=== PATIENT | male | born 1950 | race Caucasian/White ===

== ENCOUNTER 2017-10-27 19:36 | Inpatient (IN) | payer OTHER ==
[~2017-10-27] VITALS: Ht 172.7 cm; Wt 96.2 kg
[~2017-10-27 19:36] MED LIST: AMOX TR-K CLV1 EAC4 PO; DOCUSATE SODIU100 MG PO; LORTAB 5-325 M1 EACH PO
[2017-10-27 20:03] LABS: BASOPHIL (%) 0.5 % (0-1); BASOPHIL COUNT 0.1 K/uL (0-0.1); EOSINOPHIL (%) 0 % (0-5); HEMOGLOBIN 14.2 G/DL (12.5-16.6); IMMATURE GRANULOCYTE (%) 0.6 % (0.0-0.7); LYMPHOCYTE (%) 12.1 % (15-42); MCHC 34.6 G/DL (30.0-36.0); MCV 86.7 FL (86-99); MONOCYTE (%) 9.2 % (3-12); MONOCYTE COUNT 1.5 K/uL (0-0.8); NEUTROPHIL (%) 77.6 % (45-76); NEUTROPHIL COUNT 12.5 K/uL (1.8-6.4); PLATELET COUNT 146 K/uL (156-360); RBC DIS.WIDTH-CV 14.9 % (11.8-14.6); RBC DIS.WIDTH-SD 46.6 % (39-53); RED BLOOD COUNT 4.73 M/uL (4.00-5.50); WHITE BLOOD COUNT 16.1 K/uL (4.1-10.2)
[2017-10-27] MEDS ORDERED: ZESTRIL5 MG PO (20:07)
[2017-10-27 20:11] LABS: INTER. NORMALIZED RATIO 1.7
[2017-10-27 20:12] LABS: AMYLASE 45 IU/L (1-118); CHLORIDE 106 mEq/L (99-109); POTASSIUM 4.3 mEq/L (3.7-5.4); SODIUM 135 mEq/L (136-147)
[2017-10-27 20:13] LABS: GLUCOSE 111 mg/dL (70-99); PTT 34.1 SEC (25-37)
[2017-10-27 20:17] LABS: GFR ESTIMATE (CALCULATED) > 59 mL/min/ (58.99-99999); SERUM ETHYL ALCOHOL < 10 mg/dL
[2017-10-27 20:18] LABS: UREA NITROGEN (BUN) 16 mg/dL (9-23)
[2017-10-27 20:20] LABS: LIPASE 12 U/L (1.0-51.0)
[2017-10-27 20:22] LABS: TROP-I INTERPRETATION NEGATIVE; TROPONIN-I 0.16 ng/mL (0.0-0.30)
[2017-10-27] MEDS ORDERED: DAILY VALUE1 EACH PO (21:45)
[2017-10-27 22:36] LABS: APPEARANCE SL.HAZY ((CLEAR)); BILIRUBIN NEGATIVE; BLOOD LARGE; COLOR AMBER ((YELLOW)); GLUCOSE (STRIP) NEGATIVE; KETONES NEGATIVE; LEUKOCYTES NEGATIVE; NITRITE NEGATIVE; PROTEIN (STRIP) 100; SPECIFIC GRAVITY 1.023 (1.000-1.030)
[2017-10-27 23:13] LABS: AMPHETAMINE NEGATIVE (500 ng/mL); BACTERIA 1+ /HPF; BARBITURATES NEGATIVE (200 ng/mL); BENZODIAZEPINES NEGATIVE (150 ng/mL); BUPRENORPHINE NEGATIVE (10 ng/mL); COCAINE NEGATIVE (150 ng/mL); EPITHELIAL CELLS NONE SEEN /HPF; METHADONE NEGATIVE (200 ng/mL); METHAMPHETAMINE NEGATIVE (500 ng/mL); MUCUS TRACE /LPF; OPIATES (MORPHINE) NEGATIVE (100 ng/mL); OXYCODONE NEGATIVE (100 ng/mL); PHENCYCLIDINE NEGATIVE (25 ng/mL); PROPOXYPHENE NEGATIVE (300 ng/mL); RED BLOOD CELLS 40-50 /HPF (0-5); THC CANNABINOIDS NEGATIVE (50 ng/mL); TRICYCLIC ANTIDEPRESSANTS NEGATIVE (300 ng/mL); UCUL ADDED? YES
[2017-10-28 01:36] LABS: TROP-I INTERPRETATION NEGATIVE; TROPONIN-I 0.17 ng/mL (0.0-0.30)
[2017-10-28 02:00] VITALS: BP 152/88
[2017-10-28 05:03] VITALS: BP 123/96
[2017-10-28 06:11] LABS: TROP-I INTERPRETATION NEGATIVE; TROPONIN-I 0.15 ng/mL (0.0-0.30)
[2017-10-28 07:07] VITALS: BP 133/92
[2017-10-28 12:10] VITALS: BP 111/82
[2017-10-28 16:57] VITALS: BP 117/78
[2017-10-28 20:15] VITALS: BP 144/96
[2017-10-29 00:20] VITALS: BP 132/80
[2017-10-29 03:32] VITALS: BP 130/82
[2017-10-29 05:32] LABS: HEMATOCRIT 41.5 % (38.0-50.0); HEMOGLOBIN 13.8 G/DL (12.5-16.6); MCH 28.7 PG (29.0-34.0); MCHC 33.3 G/DL (30.0-36.0); MCV 86.3 FL (86-99); PLATELET COUNT 150 K/uL (156-360); RBC DIS.WIDTH-CV 15.1 % (11.8-14.6); RBC DIS.WIDTH-SD 47.6 % (39-53); RED BLOOD COUNT 4.81 M/uL (4.00-5.50)
[2017-10-29 05:49] LABS: CHLORIDE 104 MEQ/L (99-109); CREATININE 0.9 MG/DL (0.6-1.3); GFR ESTIMATE (CALCULATED) > 59 mL/min/ (58.99-99999); GLUCOSE 100 mg/dL (70-99); POTASSIUM 3.8 MEQ/L (3.7-5.4); SODIUM 135 MEQ/L (136-147); UREA NITROGEN (BUN) 19 mg/dL (9-23)
[2017-10-29 07:21] VITALS: BP 113/82
[2017-10-29 11:19] VITALS: BP 98/70
[2017-10-29 13:03] LABS: INTER. NORMALIZED RATIO 1.5
[2017-10-29 13:08] LABS: PTT 100.4 SEC (25-37)
[2017-10-29 16:12] VITALS: BP 114/79
[2017-10-29 19:35] LABS: INTER. NORMALIZED RATIO 1.5
[2017-10-29 19:49] LABS: PTT 73.4 SEC (25-37)
[2017-10-29 20:32] VITALS: BP 113/68
[2017-10-30 00:08] VITALS: BP 118/62
[2017-10-30 02:39] LABS: BASOPHIL (%) 0.5 % (0-1); BASOPHIL COUNT 0.1 K/uL (0-0.1); EOSINOPHIL (%) 1.4 % (0-5); EOSINOPHIL COUNT 0.1 K/uL (0-0.3); HEMATOCRIT 42.8 % (38.0-50.0); HEMOGLOBIN 14.6 G/DL (12.5-16.6); IMMATURE GRANULOCYTE (%) 0.3 % (0.0-0.7); LYMPHOCYTE (%) 22.8 % (15-42); LYMPHOCYTE COUNT 2.3 K/uL (1.0-2.8); MCH 29.8 PG (29.0-34.0); MCHC 34.1 G/DL (30.0-36.0); MCV 87.3 FL (86-99); MONOCYTE (%) 9.2 % (3-12); MONOCYTE COUNT 0.9 K/uL (0-0.8); NEUTROPHIL (%) 65.8 % (45-76); NEUTROPHIL COUNT 6.6 K/uL (1.8-6.4); PLATELET COUNT 150 K/uL (156-360); RBC DIS.WIDTH-CV 15.2 % (11.8-14.6); RBC DIS.WIDTH-SD 48.4 % (39-53)
[2017-10-30 02:45] LABS: INTER. NORMALIZED RATIO 1.4
[2017-10-30 02:59] LABS: CHLORIDE 104 mEq/L (99-109); POTASSIUM 4.4 mEq/L (3.7-5.4); SODIUM 138 mEq/L (136-147)
[2017-10-30 03:01] LABS: GLUCOSE 89 mg/dL (70-99)
[2017-10-30 03:05] LABS: CREATININE 0.9 mg/dL (0.6-1.3); GFR ESTIMATE (CALCULATED) > 59 mL/min/ (58.99-99999)
[2017-10-30 03:06] LABS: UREA NITROGEN (BUN) 21 mg/dL (9-23)
[2017-10-30 03:22] VITALS: BP 118/78
[2017-10-30 08:14] VITALS: BP 107/75
[2017-10-30 12:07] VITALS: BP 108/73
[2017-10-30 16:05] VITALS: BP 110/80
[2017-10-30 20:46] VITALS: BP 122/87
[2017-10-31] VITALS (8 sets, daily range): BP systolic 107–140; BP diastolic 70–90
[2017-10-31 06:40] LABS: INTER. NORMALIZED RATIO 1.4
[2017-10-31 06:55] LABS: CHLORIDE 102 MEQ/L (99-109); CREATININE 1.1 MG/DL (0.6-1.3); GFR ESTIMATE (CALCULATED) > 59 mL/min/ (58.99-99999); GLUCOSE 101 mg/dL (70-99); SODIUM 132 MEQ/L (136-147); UREA NITROGEN (BUN) 27 mg/dL (9-23)
[2017-11-01 03:36] VITALS: BP 117/75
[2017-11-01 06:41] LABS: BASOPHIL (%) 0.6 % (0-1); BASOPHIL COUNT 0.1 K/uL (0-0.1); EOSINOPHIL (%) 0.6 % (0-5); EOSINOPHIL COUNT 0.1 K/uL (0-0.3); HEMATOCRIT 41.6 % (38.0-50.0); HEMOGLOBIN 14.1 G/DL (12.5-16.6); IMMATURE GRANULOCYTE (%) 0.4 % (0.0-0.7); LYMPHOCYTE (%) 20.5 % (15-42); LYMPHOCYTE COUNT 1.6 K/uL (1.0-2.8); MCH 29.4 PG (29.0-34.0); MCHC 33.9 G/DL (30.0-36.0); MCV 86.8 FL (86-99); MONOCYTE (%) 8.8 % (3-12); MONOCYTE COUNT 0.7 K/uL (0-0.8); NEUTROPHIL (%) 69.1 % (45-76); NEUTROPHIL COUNT 5.4 K/uL (1.8-6.4); NRBC (%) 0.4 /100 WBC (0-0); PLATELET COUNT 169 K/uL (156-360); RBC DIS.WIDTH-CV 15.5 % (11.8-14.6); RED BLOOD COUNT 4.79 M/uL (4.00-5.50); WHITE BLOOD COUNT 7.9 K/uL (4.1-10.2)
[2017-11-01 06:52] LABS: INTER. NORMALIZED RATIO 1.7
[2017-11-01 06:55] LABS: PTT 91.1 SEC (25-37)
[2017-11-01 07:08] LABS: CHLORIDE 105 MEQ/L (99-109); CREATININE 1.1 MG/DL (0.6-1.3); GFR ESTIMATE (CALCULATED) > 59 mL/min/ (58.99-99999); GLUCOSE 93 mg/dL (70-99); POTASSIUM 4.6 MEQ/L (3.7-5.4); SODIUM 137 MEQ/L (136-147); UREA NITROGEN (BUN) 30 mg/dL (9-23)
[2017-11-01 07:10] VITALS: BP 116/72
[2017-11-01 11:02] VITALS: BP 111/67
[2017-11-01 14:36] LABS: INTER. NORMALIZED RATIO 1.7
[2017-11-01 14:40] LABS: PTT 36.3 SEC (25-37)
[2017-11-01 16:08] VITALS: BP 132/77
[2017-11-01 19:29] VITALS: BP 114/78
[2017-11-02] VITALS (8 sets, daily range): BP systolic 101–136; BP diastolic 56–85
[2017-11-02 02:52] LABS: INTER. NORMALIZED RATIO 2.4
[2017-11-02 02:57] LABS: CHLORIDE 105 mEq/L (99-109); POTASSIUM 4.5 mEq/L (3.7-5.4); SODIUM 138 mEq/L (136-147)
[2017-11-02 02:59] LABS: GLUCOSE 102 mg/dL (70-99)
[2017-11-02 03:03] LABS: GFR ESTIMATE (CALCULATED) > 59 mL/min/ (58.99-99999)
[2017-11-02 03:04] LABS: UREA NITROGEN (BUN) 30 mg/dL (9-23)
[2017-11-03 00:07] VITALS: BP 100/70
[2017-11-03 03:54] VITALS: BP 119/84
[2017-11-03 06:22] LABS: BASOPHIL (%) 0.7 % (0-1); BASOPHIL COUNT 0.1 K/uL (0-0.1); EOSINOPHIL (%) 2.7 % (0-5); EOSINOPHIL COUNT 0.2 K/uL (0-0.3); HEMATOCRIT 43.8 % (38.0-50.0); HEMOGLOBIN 14.1 G/DL (12.5-16.6); IMMATURE GRANULOCYTE (%) 0.3 % (0.0-0.7); LYMPHOCYTE (%) 16.5 % (15-42); LYMPHOCYTE COUNT 1.2 K/uL (1.0-2.8); MCH 28.3 PG (29.0-34.0); MCHC 32.2 G/DL (30.0-36.0); MCV 87.8 FL (86-99); MONOCYTE (%) 8.6 % (3-12); MONOCYTE COUNT 0.6 K/uL (0-0.8); NEUTROPHIL (%) 71.2 % (45-76); NEUTROPHIL COUNT 5.3 K/uL (1.8-6.4); PLATELET COUNT 179 K/uL (156-360); RBC DIS.WIDTH-CV 15.7 % (11.8-14.6); RBC DIS.WIDTH-SD 50.1 % (39-53); RED BLOOD COUNT 4.99 M/uL (4.00-5.50); WHITE BLOOD COUNT 7.5 K/uL (4.1-10.2)
[2017-11-03 06:27] LABS: INTER. NORMALIZED RATIO 3.6
[2017-11-03 06:44] LABS: CHLORIDE 103 MEQ/L (99-109); GFR ESTIMATE (CALCULATED) > 59 mL/min/ (58.99-99999); GLUCOSE 87 mg/dL (70-99); POTASSIUM 4.1 MEQ/L (3.7-5.4); SODIUM 137 MEQ/L (136-147); UREA NITROGEN (BUN) 26 mg/dL (9-23)
[2017-11-03 07:16] VITALS: BP 117/84
[2017-11-03 11:22] VITALS: BP 112/77
[2017-11-03 15:25] VITALS: BP 112/81
[2017-11-03] MEDS ORDERED: AMOX TR-K CLV1 EAC4 PO (15:37)
[2017-11-03] MEDS ORDERED: ASPIR-LOW81 MG PO (15:39)
[2017-11-03] MEDS ORDERED: FUROSEMIDE40 MG PO (15:39)
[2017-11-03] MEDS ORDERED: LISINOPRIL2.5 MG PO (15:40)
[2017-11-03] MEDS ORDERED: SPIRONOLACTONE25 MG PO (15:40)
[2017-11-03] MEDS ORDERED: COUMADIN1 MG PO (15:41)
[2017-11-03] MEDS ORDERED: LOPRESSOR25 MG PO (15:42)
[2017-11-03] MEDS ORDERED: ATORVASTATIN CA40 MG PO (15:42)
== END 2017-11-03 19:02 | disposition home health service (06) | DRG 871 ==
LOC: EME → EDBD 19:36 → EME 19:36 → EDOF 10-28 00:07 → 4EAST 10-28 00:07 → 5SOUTH 10-28 00:07 → ENRESERV 10-28 00:10 → 4EAST 10-28 01:58 → ENRESERV 10-31 14:56 → 5SOUTH 10-31 17:29 → ENPENDDIS 11-03 15:54 → 5SOUTH 11-03 19:02
PROVIDERS: Emergency Medicine; Hospitalist; Internal Medicine Cardiovascular Disease; Physician Assistant
DX: A41.9 Sepsis, unspecified organism (principal); N39.0 Urinary tract infection, site not specified; I26.99 Other pulmonary embolism without acute cor pulmonale; J15.9 Unspecified bacterial pneumonia; R74.8 Abnormal levels of other serum enzymes; I50.21 Acute systolic (congestive) heart failure; I47.2 Ventricular tachycardia; J98.11 Atelectasis; I11.0 Hypertensive heart disease with heart failure; I70.0 Atherosclerosis of aorta; B95.4 Other streptococcus as the cause of diseases classified elsewhere; I27.20 Pulmonary hypertension, unspecified; Z68.32 Body mass index [BMI] 32.0-32.9, adult; E66.3 Overweight; I42.9 Cardiomyopathy, unspecified; Z79.01 Long term (current) use of anticoagulants; Z90.49 Acquired absence of other specified parts of digestive tract; Z87.891 Personal history of nicotine dependence; Z79.899 Other long term (current) drug therapy; Z86.711 Personal history of pulmonary embolism; Z82.49 Family history of ischemic heart disease and other diseases of the circulatory system
CPT/HCPCS: 71045; 71275; 80048; 81003; 82150; 83605; 83690; 83880; 84484; 85025; 85027; 85610; 85730; 86850; 86900; 86901; 87040; 87086; 87186; 87801; 93005; 93306; 99281; 99285; G0480; J0456; J0696; J1940

== ENCOUNTER 2018-01-20 09:53 | Inpatient (IN) | payer OTHER ==
[~2018-01-20] VITALS: Ht 167.6 cm; Wt 85.5 kg
[~2018-01-20 09:53] MED LIST changes: +ASPIR-LOW81 MG PO; +ATORVASTATIN CA40 MG PO; +COUMADIN1 MG PO; +DAILY VALUE1 EACH PO; +FUROSEMIDE40 MG PO; +LISINOPRIL2.5 MG PO; +LOPRESSOR25 MG PO; +SPIRONOLACTONE25 MG PO; +ZESTRIL5 MG PO
[2018-01-20 10:25] LABS: BASOPHIL (%) 0.9 % (0-1); BASOPHIL COUNT 0.1 K/uL (0-0.1); EOSINOPHIL (%) 5.6 % (0-5); EOSINOPHIL COUNT 0.4 K/uL (0-0.3); HEMATOCRIT 36.3 % (38.0-50.0); HEMOGLOBIN 12.8 G/DL (12.5-16.6); IMMATURE GRANULOCYTE (%) 0.4 % (0.0-0.7); LYMPHOCYTE (%) 21.8 % (15-42); LYMPHOCYTE COUNT 1.7 K/uL (1.0-2.8); MCH 29.2 PG (29.0-34.0); MCHC 35.3 G/DL (30.0-36.0); MCV 82.9 FL (86-99); MONOCYTE (%) 5.4 % (3-12); MONOCYTE COUNT 0.4 K/uL (0-0.8); NEUTROPHIL (%) 65.9 % (45-76); NEUTROPHIL COUNT 5.2 K/uL (1.8-6.4); PLATELET COUNT 180 K/uL (156-360); RBC DIS.WIDTH-CV 19.1 % (11.8-14.6); RBC DIS.WIDTH-SD 57.5 % (39-53); RED BLOOD COUNT 4.38 M/uL (4.00-5.50); WHITE BLOOD COUNT 7.8 K/uL (4.1-10.2)
[2018-01-20 10:31] LABS: INTER. NORMALIZED RATIO 2.1
[2018-01-20 10:33] LABS: PTT 39.3 SEC (25-37)
[2018-01-20 10:34] LABS: CHLORIDE 99 mEq/L (99-109); POTASSIUM 5.3 mEq/L (3.7-5.4); SODIUM 134 mEq/L (136-147)
[2018-01-20 10:36] LABS: GLUCOSE 171 mg/dL (70-99)
[2018-01-20 10:40] LABS: CREATININE 2.5 mg/dL (0.6-1.3); GFR ESTIMATE (CALCULATED) 28 mL/min/ (58.99-99999)
[2018-01-20 10:41] LABS: UREA NITROGEN (BUN) 46 mg/dL (9-23)
[2018-01-20 10:46] LABS: TROP-I INTERPRETATION INDETERMINATE; TROPONIN-I 0.32 ng/mL (0.0-0.30)
[2018-01-20] MEDS ORDERED: LO-DOSE ASPIRIN81 M2 PO (11:46)
[2018-01-20] MEDS ORDERED: LASIX40 MG PO ×2 (11:46→11:47)
[2018-01-20] MEDS ORDERED: ZESTRIL2.5 MG PO (11:48)
[2018-01-20] MEDS ORDERED: ALDACTONE25 MG PO (11:48)
[2018-01-20 14:10] VITALS: BP 118/71
[2018-01-20 15:34] LABS: TROP-I INTERPRETATION POSITIVE; TROPONIN-I 2.56 ng/mL (0.0-0.30)
[2018-01-20 19:54] VITALS: BP 118/68
[2018-01-20 21:29] LABS: TROP-I INTERPRETATION POSITIVE
[2018-01-20 21:30] LABS: TROPONIN-I 3.63 ng/mL (0.0-0.30)
[2018-01-21 00:41] VITALS: BP 101/59
[2018-01-21 04:18] VITALS: BP 100/54
[2018-01-21 07:25] LABS: HEMATOCRIT 38.3 % (38.0-50.0); HEMOGLOBIN 12.8 G/DL (12.5-16.6); MCH 28.4 PG (29.0-34.0); MCHC 33.4 G/DL (30.0-36.0); MCV 84.9 FL (86-99); PLATELET COUNT 191 K/uL (156-360); RBC DIS.WIDTH-SD 61.1 % (39-53); RED BLOOD COUNT 4.51 M/uL (4.00-5.50); WHITE BLOOD COUNT 9.1 K/uL (4.1-10.2)
[2018-01-21 07:47] LABS: TROP-I INTERPRETATION POSITIVE; TROPONIN-I 3.86 ng/mL (0.0-0.30)
[2018-01-21 07:51] LABS: CHLORIDE 101 MEQ/L (99-109); CREATININE 2.4 MG/DL (0.6-1.3); GFR ESTIMATE (CALCULATED) 29 mL/min/ (58.99-99999); POTASSIUM 5.1 MEQ/L (3.7-5.4); SODIUM 136 MEQ/L (136-147); UREA NITROGEN (BUN) 45 mg/dL (9-23)
[2018-01-21 08:04] LABS: GLUCOSE 87 mg/dL (70-99)
[2018-01-21 08:19] LABS: PTT 61.1 SEC (25-37)
[2018-01-21 08:45] VITALS: BP 108/55
[2018-01-21 09:03] LABS: INTER. NORMALIZED RATIO 2.1
[2018-01-21 11:56] VITALS: BP 120/73
== END 2018-01-21 14:09 | disposition home or self-care (01) | DRG 311 ==
LOC: EME → EDBD 09:53 → 4EAST 11:39 → EDOF 11:39 → ENRESERV 11:42 → 4EAST 14:00
PROVIDERS: Emergency Medicine; Hospitalist; Internal Medicine
DX: I24.8 Other forms of acute ischemic heart disease (principal); I25.10 Atherosclerotic heart disease of native coronary artery without angina pectoris; I25.5 Ischemic cardiomyopathy; E11.22 Type 2 diabetes mellitus with diabetic chronic kidney disease; I12.9 Hypertensive chronic kidney disease with stage 1 through stage 4 chronic kidney disease, or unspecified chronic kidney disease; N18.3 Chronic kidney disease, stage 3 (moderate); E78.5 Hyperlipidemia, unspecified; Z21 Asymptomatic human immunodeficiency virus [HIV] infection status; Z79.01 Long term (current) use of anticoagulants; Z86.711 Personal history of pulmonary embolism; I25.2 Old myocardial infarction; Z87.891 Personal history of nicotine dependence; Z79.899 Other long term (current) drug therapy
CPT/HCPCS: 71045; 80048; 84484; 85025; 85027; 85610; 85730; 93005; 99281; 99285; J7030

== ENCOUNTER 2018-02-17 07:59 | Day surgery (SDC) | payer OTHER ==
[~2018-02-17] VITALS: Ht 171.4 cm; Wt 81.2 kg
[~2018-02-17 07:59] MED LIST changes: +ACETYLCYST200 MG/1 M PO; +ALDACTONE25 MG PO; +LASIX40 MG PO; +LO-DOSE ASPIRIN81 M2 PO; +ZESTRIL2.5 MG PO
== END 2018-02-17 12:30 | disposition home or self-care (01) ==
LOC: CATH 07:59
DX: I25.110 Atherosclerotic heart disease of native coronary artery with unstable angina pectoris (principal); Z53.29 Procedure and treatment not carried out because of patient's decision for other reasons
CPT/HCPCS: J1644; J2250; J3010